=== PATIENT | male | born 1990 | race Caucasian/White ===

== ENCOUNTER 2017-07-02 15:28 | Emergency (ER) | payer OTHER ==
[~2017-07-02] VITALS: Ht 170.2 cm; Wt 81.6 kg
[~2017-07-02 15:28] MED LIST: BACTRIM DS TAB1 EACH PO; CEPHALEXIN500 MG PO; CIPRO500 MG PO; CLINDAMYCIN HC300 MG PO; CYCLOBENZAPRINE10 MG PO; DOXYCYCLINE HY100 MG PO; FLAGYL500 MG PO; FLEXERIL10 MG PO; HYDROCODON-ACE1 EAC8 PO; IBUPROFEN600 MG PO; IBUPROFEN800 MG PO; MEDROL4 M1 PO; MELOXICAM15 MG PO; MINOCYCLINE HC100 MG PO; NAPROXEN500 MG PO; NORCO 5-325 TA1 EACH PO; PAIN RELIEF500 M1 PO; PENICILLIN V P500 MG PO; PERCOCET 5-3251 EACH PO; PREDNISONE10 MG PO; PROMETHAZINE HC25 M1 PO; ROBAXIN500 MG PO; SOMA350 MG PO; TRAMADOL HCL50 MG PO; TRIAMCINOLONE A15 GM TOP; TYLENOL325 MG PO; ULTRAM50 MG PO; VICODIN 5-3001 EACH PO
--- OUTSIDE RECORDS SUMMARY | 2017-07-02 16:29 | XMS | Clinical Summary ---
Demographics + + + | Address | [address] | | | [place] [address] | + + + | Home Phone | | + + + | Preferred Language | Unknown | + + + | Marital Status | Single | + + + | Mormonism Affiliation | 1013 | + + + | Race | Unknown | + + + | Ethnic Group | Unknown | + + + Author + + + | Author | [facility] | | | and [place] | + + + | Organization | [facility] | | | and [place] | + + + | Address | Unknown | + + + | Phone | Unavailable | + + + Support + + + + + | Name | Relationship | Address | Phone | + + + + + | Erin Carmen | ECON | [address] | | | | | [place], [place] | | | | | [address] | | + + + + + Care Team Providers + +------+ + | Care Bench Machine Operator Name | Role | Phone | + +------+ + | Rosalio Stinson MD | PP | | + +------+ + Allergies No Known Allergies Current Medications + +------+-------+---------+------+------+-------+ | Prescription | Sig. | Disp. | Refills | Star | End | Statu | | | | | | t | Date | s | | | | | | Date | | | + +------+-------+---------+------+------+-------+ | ibuprofen | | | | 10/3 | | Activ | | (ADVIL,MOTRIN) 800 | | | | 1/20 | | e | | MG tablet | | | | 16 | | | + +------+-------+---------+------+------+-------+ Active Problems No known active problems Social History + +-------+ +--------+------+ | Tobacco Use | Types | Packs/Day | Years | Date | | | | | Used | | + +-------+ +--------+------+ | Current Every Day | | | | | | Smoker | | | | | + +-------+ +--------+------+ + +---+---+---+ | Smokeless Tobacco: | | | | | Never Used | | | | + +---+---+---+ + + + | Sex Assigned at | Date Recorded | | | | + + + | Not on file | | + + + Last Filed Vital Signs + + + + | Vital Sign | Reading | Time Taken | + + + + | Blood Pressure | 126/76 | 01/26/20166 PST | + + + + | Pulse | 76 | 01/26/20166 PST | + + + + | Temperature | - | - | + + + + | Respiratory Rate | 16 | 01/26/20166 PST | + + + + | Oxygen Saturation | - | - | + + + + | Inhaled Oxygen | - | - | | Concentration | | | + + + + | Weight | 82.1 kg (181 lb 1.6 | 01/26/20161405 PST | | | oz) | | + + + + | Height | 170.2 cm (5' 7") | 01/26/20161405 PST | + + + + | Body Mass Index | 28.36 | 01/26/20161405 PST | + + + + Plan of Treatment + + + + + | Health Maintenance | Due Date | Last Done | Comments | + + + + + | Vaccine: | | | | | Dtap/Tdap/Td (1 - | 8 | | | | Tdap) | | | | + + + + + | Vaccine: | | | | | Pneumococcal 19-64 | 8 | | | | (PPSV23 only) Medium | | | | | Risk (1 of 1 - | | | | | PPSV23) | | | | + + + + + | Vaccine: Influenza | | | | | (Season Ended) | 8 | | | + + + + + Results Not on filefrom Last 3 Months Insurance + +--------+ +--------+ +---------+ | Payer | Benefi | Subscriber | Type | Phone | Address | | | t Plan | ID | | | | | | / | | | | | | | Group | | | | | + +--------+ +--------+ +---------+ | [employer] | [employer] | xxxxxxxx | Medica | [phone] | | | MEDICAID HMO | HEALTH | | id | [phone] | | | | [place] | | | | | | | [place] | | | | | + +--------+ +--------+ +---------+ + +--------+ +--------+ + + | Guarantor Name | Accoun | Relation to | Date | Phone | Billing Address | | | t Type | Patient | of | | | | | | | | | | + +--------+ +--------+ + + | SAM CARMEN | Person | Self [birth year] Home: | [address] | | L | al/Fam | | 1990 | [phone] | [place] | | | [place] | | | [phone] | [phone] | + +--------+ +--------+ + +
--- OUTSIDE RECORDS SUMMARY | 2017-07-02 16:29 | XMS | Clinical Summary ---
Demographics + + + | Address | [address] | | | [place] [address] | + + + | Home Phone | | + + + | Preferred Language | Unknown | + + + | Marital Status | Single | + + + | Latter-Day Affiliation | 1013 | + + + | Race | Unknown | + + + | Ethnic Group | Unknown | + + + Author + + + | Author | [facility] | | | and [place] | + + + | Organization | [facility] | | | and [place] | + [...] [place], [place] | | | | | [address] | | + + + + + Care Team Providers + +------+ + | Care Environmental Protection Inspector Name | Role | Phone | + [...] | [employer] | xxxxxxxx | Medica | [phone] | | | MEDICAID HMO | HEALTH [...] Self | [birth year] | Home: | [address] [facility] | | L | al/Fam | | 1990 | [phone] | [place] | | | [place] | | | [phone] | [phone] | + +--------+ +--------+ + +
[2017-07-02] MEDS ORDERED: METHYLPREDNISOLO4 M1 PO (16:49)
[2017-07-02] MEDS ORDERED: BACLOFEN10 MG PO (16:49)
== END 2017-07-02 16:59 | disposition home or self-care (01) ==
LOC: ED 15:28
DX: S29.012A Strain of muscle and tendon of back wall of thorax, initial encounter (principal); F17.200 Nicotine dependence, unspecified, uncomplicated; Z87.442 Personal history of urinary calculi; X58.XXXA Exposure to other specified factors, initial encounter
CPT/HCPCS: 99283

== ENCOUNTER 2017-07-07 02:33 | Emergency (ER) | payer OTHER ==
[~2017-07-07] VITALS: Ht 170.2 cm; Wt 81.7 kg
--- OUTSIDE RECORDS SUMMARY | ~2017-07-07 | XMS | Clinical Summary ---
Demographics + + + | Address | [address] | | | [place] [address] | + + + | Home Phone | | + + + | Preferred Language | Unknown | + + + | Marital Status | Single | + + + | Sabianist Affiliation | 1013 | + + + | Race | Unknown | + + + | Ethnic Group | Unknown | + + + Author + + + | Author | [facility] | | | and [place] | + + + | Organization | [facility] | | | and [place] | [...] [place], [place] | | | | | [address] | | + + + + + Care Team Providers + +------+ + | Care Peripatologist Name | Role | Phone | + [...] | [employer] | xxxxxxxx | Medica | [phone] | | | MEDICAID HMO | HEALTH [...] Self | [birth year] | Home: | [address] | | L | al/Fam | | 1990 | [phone] | [place] | | | [place] | | | [phone] | [phone] | + +--------+ +--------+ + +
--- OUTSIDE RECORDS SUMMARY | ~2017-07-07 | XMS | Clinical Summary ---
Demographics + + + | Address | [address] | | | [place] [address] | + + + | Home Phone | | + + + | Preferred Language | Unknown | + + + | Marital Status | Single | + + + | Shinto Affiliation | 1013 | + + + | Race | Unknown | + + + | Ethnic Group | Unknown | + + + Author + + + | Author | [facility] | | | and [place] | + + + | Organization | [facility] | | | and [place] [...] [place], [place] | | | | | [address] | | + + + + + Care Team Providers + +------+ + | Care Mink Rancher Name | Role | Phone | + [...] Self | [birth year] | Home: | [address] | | L | al/Fam | | 1990 | [phone] | [place] | | | [place] | | | [phone] | [phone] | + +--------+ +--------+ + +
[~2017-07-07 02:33] MED LIST changes: +BACLOFEN10 MG PO; +METHYLPREDNISOLO4 M1 PO
== END 2017-07-07 03:24 | disposition home or self-care (01) ==
LOC: ED 02:33
DX: K29.70 Gastritis, unspecified, without bleeding (principal); F17.200 Nicotine dependence, unspecified, uncomplicated
CPT/HCPCS: 71046; 99283

== ENCOUNTER 2017-09-28 02:12 | Emergency (ER) | payer SELFPAY ==
[~2017-09-28] VITALS: Ht 170.2 cm; Wt 81.7 kg
== END 2017-09-28 03:40 | disposition home or self-care (01) ==
LOC: ED 02:12
DX: R10.9 Unspecified abdominal pain (principal); F17.200 Nicotine dependence, unspecified, uncomplicated
CPT/HCPCS: 74176; 80053; 81001; 85025; 96374; 96375; 99284; J1885; J2405